=== PATIENT | female | born 1965 | race African-American/Black ===

== ENCOUNTER 2018-01-16 21:39 | Inpatient (IN) ==
[2018-01-16] MEDS ORDERED: ALBUTEROL/IPRATROPIUM 3 ML NEB RESP TX STA (22:30)
[2018-01-16] MEDS ORDERED: ASPIRIN 325 MG TABLET PO STA (22:30)
[2018-01-16] MEDS ORDERED: ONDANSETRON 4 MG/2 ML VIAL IV ONE (22:30)
[2018-01-16 22:46] LABS: Basophils % 0.2 % (0.0-0.8); Eosinophils % 0.2 % (0.00-10.9); Hematocrit 35.8 VOL% (35.7-47.0); Hemoglobin 11.4 GM/DL (12.0-16.0); Immature Granulocytes % 0.5 %; Immature Granulocytes Absolute 0.05 #; Lymphocytes # 1.1 10*3/uL (1.4-4.0); Lymphocytes % 11.2 % (21.3-54.2); Mean Corpuscular HGB Conc 31.8 GM/DL (32-36); Mean Corpuscular Hemoglobin 29 PG (27-34); Mean Corpuscular Volume 89.7 FL (87-102); Mean Platelet Volume 11.7 FL (9.6-12.0); Monocytes # 0.6 10*3/uL (0.11-0.8); Monocytes % 6.6 % (1.7-12.7); Neutrophils # 7.9 10*3/uL (1.4-7.4); Neutrophils % 81.3 % (38.7-73.9); Platelet Count 199 T/CUMM (130-400); Red Blood Count 3.99 MC/CUMM (3.8-5.5); Red Cell Distribution Width 13.9 % (9.3-17.3); White Blood Count 9.7 T/CUMM (4-12)
[2018-01-16 22:52] LABS: INR 0.9
[2018-01-16 23:00] LABS: ABG Base Excess -1.3 MMOL/L (-2.5-2.5); ABG Oxygen Saturation 87.6 % (95-100); ABG PCO2 36.7 MM HG (35-48); ABG PH 7.415 (7.35-7.45); ABG TCO2 24.1 MMOL/L (23-27)
[2018-01-16 23:01] LABS: Alanine Aminotransferase 26 U/L (13-56); Albumin 2.6 G/DL (3.4-5.0); Alkaline Phosphatase 169 U/L (45-117); Aspartate Amino Transferase 26 U/L (0-37); Blood Urea Nitrogen 52 MG/DL (7-18); Calcium 8.3 MG/DL (8.5-10.1); Glucose 364 MG/DL (74-106); Osmolality,Calculated 305.5 MOS/KG (273-304); Potassium 4.2 MMOL/L (3.5-5.1); Sodium 139 MMOL/L (136-145); Total Protein 6.8 G/DL (6.4-8.3); Troponin I Only < 0.015 NG/ML (0.00-0.045)
[2018-01-17] MEDS ORDERED: FUROSEMIDE 40 MG/4 ML VIAL IV ONE ×3 (00:47→09:53)
[2018-01-17] MEDS ORDERED: FUROSEMIDE 100 MG/10 ML VIAL ONE (01:45)
[2018-01-17] MEDS ORDERED: MORPHINE 4 MG/1 ML VIAL IV PRN (03:18)
[2018-01-17] MEDS ORDERED: GLUCAGON 1 MG VIAL IM PRN (03:18)
[2018-01-17] MEDS ORDERED: DEXTROSE 50% 25 GM/50 ML VIAL IV PRN (03:18)
[2018-01-17] MEDS ORDERED: PROMETHAZINE 25 MG/1 ML VIAL IM PRN (03:18)
[2018-01-17] MEDS ORDERED: ONDANSETRON 4 MG/2 ML VIAL IV PRN (03:18)
[2018-01-17] MEDS ORDERED: ALBUMIN 25% 50 GM in PREMIX 1 EACH IV ONE (04:00)
[2018-01-17 06:15] LABS: Risk Ratio 2.36; Thyroid Stimulating Hormone 2.81 uIU/ml (0.358-3.74); VLDL CHOLESTEROL 21.8 MG/DL
[2018-01-17] MEDS ORDERED: ALBUTEROL/IPRATROPIUM 3 ML NEB RESP TX PRN (07:58)
[2018-01-17] MEDS ORDERED: NON-FORMULARY MEDICATION (Liraglutide [Victoza 2-Pak] 0.6 MG) SUBCUT SCH (09:00)
[2018-01-17] MEDS ORDERED: FUROSEMIDE 40 MG/4 ML VIAL IV SCH ×2 (09:00→16:00)
[2018-01-17] MEDS ORDERED: ENOXAPARIN 30 MG/0.3 ML SYRINGE SUBCUT SCH (09:00)
[2018-01-17 09:17] LABS: Apearance,Urine Slightly Hazy (Clear); Bacteria,Urine Occasional /HPF (Few); Bilirubin,Urine Negative (Negative); Blood, Urine Large mg/dL (Negative); Glucose,Urine (UA) >=500 mg/dL (Negative); Ketones,Urine Negative (Negative); Mucus,Urine Occasional /LPF (Occasional); Nitrite,Urine Negative (Negative); Protein,Urine >=500 MG/DL; RBC,Urine 254 /HPF (0-4); Squamous Epithelial Cell,Urine Occasional /HPF (0-10); Urine Color Yellow (Yellow); Urine Specific Gravity 1.008 (1.001-1.035); Urine Urobilinogen < 2.0 EU/DL (0.2-1.0); WBC,Urine 41 /HPF (0-6)
[2018-01-17] MEDS: INSULIN REGULAR 100 UNIT/ML SUBCUT SCH ×3 (10:09→17:55)
[2018-01-17 11:34] LABS: Protein/Creatinine Ratio,Urine 8.2 RATIO
[2018-01-17] MEDS: ENOXAPARIN 80 MG/0.8 ML SYRINGE SUBCUT SCH (13:10)
[2018-01-17] MEDS: hydrALAZINE 25 MG TABLET PO SCH ×3 (15:12→21:17)
[2018-01-17] MEDS: CARVEDILOL 25 MG TABLET PO SCH ×2 (15:18→21:17)
[2018-01-17] MEDS: amLODIPine 5 MG TABLET PO SCH (15:19)
[2018-01-17] MEDS: ASPIRIN EC 81 MG TABLET PO SCH (15:21)
[2018-01-17] MEDS: LEVOTHYROXINE 50 MCG TABLET PO SCH (15:21)
[2018-01-17] MEDS: FERROUS SULFATE 325 MG TABLET PO SCH (15:21)
[2018-01-17] MEDS: PANTOPRAZOLE 40 MG TABLET PO SCH (15:21)
[2018-01-17] MEDS: DOCUSATE SODIUM 100 MG CAPSULE PO SCH ×2 (15:21→21:19)
[2018-01-17] MEDS: SODIUM BICARBONATE 650 MG TABLET PO SCH ×2 (15:22→21:16)
[2018-01-17] MEDS: TIMOLOL 0.25% OPH SOLN 5 ML BOTTLE LEFT EYE SCH (15:22)
[2018-01-17] MEDS ORDERED: metOLazone 5 MG TABLET PO ONE (15:37)
[2018-01-17] MEDS ORDERED: FUROSEMIDE 100 MG/10 ML VIAL IV SCH (16:00)
[2018-01-17] MEDS: FUROSEMIDE 40 MG/4 ML VIAL IV SCH ×2 (16:07→21:21)
[2018-01-17] MEDS: ALBUMIN 25% 25 GM in PREMIX 1 EACH IV SCH (17:10)
[2018-01-17] MEDS: ATORVASTATIN 40 MG TABLET PO SCH (21:17)
[2018-01-17 23:10] LABS: ABG Base Excess -0.6 MMOL/L (-2.5-2.5); ABG HCO3 23.9 MMOL/L (20-26); ABG Oxygen Saturation 93.8 % (95-100); ABG PCO2 39.5 MM HG (35-48); ABG PH 7.394 (7.35-7.45); ABG PO2 79.5 MM HG (80-95); ABG TCO2 22.8 MMOL/L (23-27); Allen Test Positive
[2018-01-18 00:12] LABS: Calcium 8.1 MG/DL (8.5-10.1); Osmolality,Calculated 298.1 MOS/KG (273-304); Potassium 3.3 MMOL/L (3.5-5.1)
[2018-01-18] MEDS: INSULIN REGULAR 100 UNIT/ML SUBCUT SCH ×5 (00:26→23:38)
[2018-01-18 00:32] LABS: Apearance,Urine CLOUDY (Clear); Bacteria,Urine Many /HPF (Few); Bilirubin,Urine Negative (Negative); Blood, Urine Moderate mg/dL (Negative); Glucose,Urine (UA) 50 mg/dL (Negative); Granular Casts,Urine 46 /LPF (0-1); Ketones,Urine Negative (Negative); Mucus,Urine Few /LPF (Occasional); Nitrite,Urine Negative (Negative); Protein,Urine 100 MG/DL; RBC,Urine 6702 /HPF (0-4); Urine Color Red (Yellow); Urine Specific Gravity 1.012 (1.001-1.035); Urine Urobilinogen < 2.0 EU/DL (0.2-1.0); WBC,Urine 342 /HPF (0-6)
[2018-01-18] MEDS: INSULIN GLARGINE 100 UNIT/ML SUBCUT SCH ×2 (00:57→20:47)
[2018-01-18] MEDS: FERROUS SULFATE 325 MG TABLET PO SCH ×4 (00:57→20:47)
[2018-01-18] MEDS: TIMOLOL 0.25% OPH SOLN 5 ML BOTTLE LEFT EYE SCH ×3 (00:58→22:13)
[2018-01-18 03:07] LABS: Basophils % 0.2 % (0.0-0.8); Hematocrit 22.1 VOL% (35.7-47.0); Hemoglobin 6.7 GM/DL (12.0-16.0); Immature Granulocytes % 0.4 %; Immature Granulocytes Absolute 0.05 #; Lymphocytes # 1.1 10*3/uL (1.4-4.0); Lymphocytes % 9.4 % (21.3-54.2); Mean Corpuscular HGB Conc 30.3 GM/DL (32-36); Mean Corpuscular Hemoglobin 27 PG (27-34); Mean Corpuscular Volume 90.2 FL (87-102); Mean Platelet Volume 10.9 FL (9.6-12.0); Monocytes % 8.6 % (1.7-12.7); Neutrophils # 9.7 10*3/uL (1.4-7.4); Neutrophils % 81.4 % (38.7-73.9); Platelet Count 183 T/CUMM (130-400); Red Blood Count 2.45 MC/CUMM (3.8-5.5); White Blood Count 11.9 T/CUMM (4-12)
[2018-01-18 03:33] LABS: Calcium 8.2 MG/DL (8.5-10.1); Osmolality,Calculated 298.1 MOS/KG (273-304); Potassium 3.2 MMOL/L (3.5-5.1)
[2018-01-18] MEDS: FUROSEMIDE 40 MG/4 ML VIAL IV SCH ×4 (04:53→23:31)
[2018-01-18] MEDS: ALBUMIN 25% 25 GM in PREMIX 1 EACH IV SCH ×2 (04:54→17:28)
[2018-01-18] MEDS: LEVOTHYROXINE 50 MCG TABLET PO SCH (06:10)
[2018-01-18] MEDS: PANTOPRAZOLE 40 MG TABLET PO SCH (09:44)
[2018-01-18] MEDS: SODIUM BICARBONATE 650 MG TABLET PO SCH ×2 (09:44→20:47)
[2018-01-18] MEDS: hydrALAZINE 25 MG TABLET PO SCH ×3 (09:44→20:48)
[2018-01-18] MEDS: DOCUSATE SODIUM 100 MG CAPSULE PO SCH ×2 (09:44→20:47)
[2018-01-18] MEDS: ASPIRIN EC 81 MG TABLET PO SCH (09:45)
[2018-01-18] MEDS: metOLazone 5 MG TABLET PO SCH (09:45)
[2018-01-18] MEDS: amLODIPine 5 MG TABLET PO SCH (09:45)
[2018-01-18] MEDS: CARVEDILOL 25 MG TABLET PO SCH ×2 (09:45→20:47)
[2018-01-18] MEDS ORDERED: POTASSIUM CHLORIDE 20 MEQ TABLET PO ONE (10:08)
[2018-01-18 10:37] LABS: Basophils % 0.2 % (0.0-0.8); Eosinophils % 0.2 % (0.00-10.9); Hematocrit 20.5 VOL% (35.7-47.0); Hemoglobin 6.7 GM/DL (12.0-16.0); Immature Granulocytes % 0.3 %; Immature Granulocytes Absolute 0.04 #; Lymphocytes # 0.9 10*3/uL (1.4-4.0); Lymphocytes % 7.6 % (21.3-54.2); Mean Corpuscular HGB Conc 32.7 GM/DL (32-36); Mean Corpuscular Hemoglobin 29 PG (27-34); Mean Corpuscular Volume 87.6 FL (87-102); Monocytes # 0.9 10*3/uL (0.11-0.8); Monocytes % 7.7 % (1.7-12.7); Neutrophils # 10.2 10*3/uL (1.4-7.4); Platelet Count 172 T/CUMM (130-400); Red Blood Count 2.34 MC/CUMM (3.8-5.5); Red Cell Distribution Width 14.2 % (9.3-17.3); White Blood Count 12.2 T/CUMM (4-12)
[2018-01-18 10:46] LABS: % Iron Saturation 7.4 % (18-50)
[2018-01-18 11:04] LABS: Basophils % 0.2 % (0.0-0.8); Eosinophils % 0.2 % (0.00-10.9); Hematocrit 19.7 VOL% (35.7-47.0); Hemoglobin 6.5 GM/DL (12.0-16.0); Immature Granulocytes % 0.5 %; Immature Granulocytes Absolute 0.06 #; Lymphocytes # 0.8 10*3/uL (1.4-4.0); Mean Corpuscular Hemoglobin 29 PG (27-34); Mean Corpuscular Volume 87.6 FL (87-102); Mean Platelet Volume 10.9 FL (9.6-12.0); Neutrophils # 10.2 10*3/uL (1.4-7.4); Neutrophils % 84.1 % (38.7-73.9); Platelet Count 177 T/CUMM (130-400); Red Blood Count 2.25 MC/CUMM (3.8-5.5); Red Cell Distribution Width 14.2 % (9.3-17.3); White Blood Count 12.1 T/CUMM (4-12)
[2018-01-18 12:20] LABS: Folate 8.7 NG/ML (5.4-24.0); Vitamin B12 391 PG/ML (211-911)
[2018-01-18] MEDS: ENOXAPARIN 80 MG/0.8 ML SYRINGE SUBCUT SCH (12:21)
[2018-01-18 13:13] LABS: Sedimentation Rate-Westergren 125 MM/HR (0-30)
[2018-01-18] MEDS ORDERED: SODIUM CHLORIDE 0.9% 1,000 ML IV PRN (16:13)
[2018-01-18] MEDS: ATORVASTATIN 40 MG TABLET PO SCH (20:47)
[2018-01-19] MEDS: ALBUMIN 25% 25 GM in PREMIX 1 EACH IV SCH ×2 (04:31→16:37)
[2018-01-19] MEDS: FUROSEMIDE 40 MG/4 ML VIAL IV SCH ×4 (04:31→21:51)
[2018-01-19 05:24] LABS: Basophils % 0.1 % (0.0-0.8); Eosinophils # 0.1 10*3/uL (0.0-0.87); Hematocrit 24.1 VOL% (35.7-47.0); Hemoglobin 7.7 GM/DL (12.0-16.0); Immature Granulocytes % 0.4 %; Immature Granulocytes Absolute 0.04 #; Lymphocytes # 0.9 10*3/uL (1.4-4.0); Mean Corpuscular Hemoglobin 29 PG (27-34); Mean Corpuscular Volume 89.3 FL (87-102); Mean Platelet Volume 11.6 FL (9.6-12.0); Monocytes % 10.1 % (1.7-12.7); Neutrophils # 7.6 10*3/uL (1.4-7.4); Neutrophils % 79.4 % (38.7-73.9); Platelet Count 145 T/CUMM (130-400); Red Cell Distribution Width 14.2 % (9.3-17.3); White Blood Count 9.6 T/CUMM (4-12)
[2018-01-19 05:43] LABS: Osmolality,Calculated 300.4 MOS/KG (273-304); Potassium 3.3 MMOL/L (3.5-5.1)
[2018-01-19] MEDS: INSULIN REGULAR 100 UNIT/ML SUBCUT SCH ×3 (05:49→17:57)
[2018-01-19] MEDS: LEVOTHYROXINE 50 MCG TABLET PO SCH (06:19)
[2018-01-19] MEDS: POLYETHYLENE GLYCOL POWDER 17 GM PACK PO SCH ×2 (06:19→09:29)
[2018-01-19 09:26] LABS: Hemoglobin A1 (Alkaline) 98.2 % (96.5-98.5); Hemoglobin A2 (Alkaline) 1.8 % (1.5-3.5)
[2018-01-19] MEDS: TIMOLOL 0.25% OPH SOLN 5 ML BOTTLE LEFT EYE SCH ×2 (09:27→20:58)
[2018-01-19] MEDS: DOCUSATE SODIUM 100 MG CAPSULE PO SCH ×2 (09:28→20:55)
[2018-01-19] MEDS: metOLazone 5 MG TABLET PO SCH (09:28)
[2018-01-19] MEDS: SODIUM BICARBONATE 650 MG TABLET PO SCH ×2 (09:28→20:55)
[2018-01-19] MEDS: PANTOPRAZOLE 40 MG TABLET PO SCH (09:28)
[2018-01-19] MEDS: hydrALAZINE 25 MG TABLET PO SCH ×4 (09:28→20:56)
[2018-01-19] MEDS: CARVEDILOL 25 MG TABLET PO SCH ×2 (09:28→20:56)
[2018-01-19] MEDS: FERROUS SULFATE 325 MG TABLET PO SCH ×3 (09:28→20:59)
[2018-01-19] MEDS: amLODIPine 5 MG TABLET PO SCH (09:28)
[2018-01-19] MEDS ORDERED: POTASSIUM CHLORIDE 20 MEQ/15 ML UDCUP PO ONE (11:00)
[2018-01-19] MEDS: cefTRIAXone 1,000 MG in SYRINGE 1 EACH IV SCH (11:54)
[2018-01-19 11:55] LABS: Rheumatoid Factor < 15 IU/ML (<15)
[2018-01-19 12:16] LABS: Allen Test Positive; Pt O2 Delivery Device Venturi Mask
[2018-01-19 12:17] LABS: ABG Base Excess -0.9 MMOL/L (-2.5-2.5); ABG HCO3 23.5 MMOL/L (20-26); ABG Oxygen Saturation 89.2 % (95-100); ABG PCO2 35.5 MM HG (35-48); ABG PH 7.423 (7.35-7.45); ABG PO2 57.8 MM HG (80-95); ABG TCO2 21.6 MMOL/L (23-27)
[2018-01-19] MEDS: CLINDAMYCIN INJ 300 MG in PREMIX 1 EACH IV SCH ×2 (12:22→21:46)
[2018-01-19 14:21] LABS: Collection Time,Urine 24 HOURS; Total Protein 24 Hr Ur Result 3168 MG/24HR (0-149.1); Total Volume,Urine 600 ML (400-2000)
[2018-01-19] MEDS ORDERED: SODIUM CHLORIDE 0.9% 1,000 ML IV PRN (17:27)
[2018-01-19] MEDS: INSULIN GLARGINE 100 UNIT/ML SUBCUT SCH (20:55)
[2018-01-19] MEDS: ATORVASTATIN 40 MG TABLET PO SCH (20:56)
[2018-01-19] MEDS ORDERED: PROPOFOL 1,000 MG/100 ML BOTTLE IV ONE (22:20)
[2018-01-19] MEDS ORDERED: VECURONIUM 10 MG VIAL IV ONE ×2 (22:21→22:25)
[2018-01-19] MEDS ORDERED: ETOMIDATE 20 MG/10 ML VIAL IV ONE ×2 (22:21→22:25)
[2018-01-19 23:54] LABS: Hematocrit 25.8 VOL% (35.7-47.0); Hemoglobin 8.4 GM/DL (12.0-16.0)
[2018-01-20 00:23] LABS: ABG Base Excess -2.7 MMOL/L (-2.5-2.5); ABG HCO3 24.2 MMOL/L (20-26); ABG PCO2 52.9 MM HG (35-48); ABG PH 7.278 (7.35-7.45); ABG PO2 117.2 MM HG (80-95); ABG TCO2 25.8 MMOL/L (23-27); Pt O2 Delivery Device Ventilator
[2018-01-20] MEDS: PROPOFOL 1,000 MG/100 ML BOTTLE IV SCH ×7 (00:27→21:26)
[2018-01-20] MEDS: INSULIN REGULAR 100 UNIT/ML SUBCUT SCH ×4 (00:28→18:25)
[2018-01-20 01:40] LABS: ABG Base Excess -3.6 MMOL/L (-2.5-2.5); ABG HCO3 21.3 MMOL/L (20-26); ABG Oxygen Saturation 91.2 % (95-100); ABG PCO2 51.7 MM HG (35-48); ABG PH 7.267 (7.35-7.45); ABG PO2 71.7 MM HG (80-95); ABG TCO2 22.1 MMOL/L (23-27); Pt O2 Delivery Device Ventilator
[2018-01-20] MEDS ORDERED: FUROSEMIDE 20 MG/2 ML VIAL ONE (04:08)
[2018-01-20] MEDS: FUROSEMIDE 40 MG/4 ML VIAL IV SCH ×2 (04:13→10:51)
[2018-01-20] MEDS: ALBUMIN 25% 25 GM in PREMIX 1 EACH IV SCH ×2 (04:13→17:25)
[2018-01-20] MEDS: LEVOTHYROXINE 50 MCG TABLET PO SCH (05:50)
[2018-01-20] MEDS: CLINDAMYCIN INJ 300 MG in PREMIX 1 EACH IV SCH ×3 (05:52→21:40)
[2018-01-20 06:08] LABS: Basophils % 0.2 % (0.0-0.8); Eosinophils # 0.1 10*3/uL (0.0-0.87); Eosinophils % 0.8 % (0.00-10.9); Hematocrit 25.7 VOL% (35.7-47.0); Hemoglobin 8.4 GM/DL (12.0-16.0); Immature Granulocytes % 0.6 %; Immature Granulocytes Absolute 0.06 #; Lymphocytes # 0.9 10*3/uL (1.4-4.0); Lymphocytes % 8.4 % (21.3-54.2); Mean Corpuscular HGB Conc 32.7 GM/DL (32-36); Mean Corpuscular Hemoglobin 29 PG (27-34); Mean Corpuscular Volume 88.9 FL (87-102); Mean Platelet Volume 10.6 FL (9.6-12.0); Monocytes # 0.8 10*3/uL (0.11-0.8); Monocytes % 7.6 % (1.7-12.7); Neutrophils # 8.3 10*3/uL (1.4-7.4); Neutrophils % 82.4 % (38.7-73.9); Platelet Count 173 T/CUMM (130-400); Red Blood Count 2.89 MC/CUMM (3.8-5.5); Red Cell Distribution Width 14.5 % (9.3-17.3); White Blood Count 10.1 T/CUMM (4-12)
[2018-01-20 06:25] LABS: Calcium 7.8 MG/DL (8.5-10.1); Osmolality,Calculated 307.7 MOS/KG (273-304); Potassium 3.7 MMOL/L (3.5-5.1)
[2018-01-20 08:09] LABS: ABG Base Excess -3.2 MMOL/L (-2.5-2.5); ABG HCO3 22.2 MMOL/L (20-26); ABG Oxygen Saturation 96.4 % (95-100); ABG PH 7.351 (7.35-7.45); ABG PO2 100.4 MM HG (80-95); ABG TCO2 23.4 MMOL/L (23-27); Pt O2 Delivery Device Ventilator
[2018-01-20 08:52] LABS: PT Patient Result 10.8 SECS; Partial Thromboplastin Time 34.1 SECS (0-40)
[2018-01-20] MEDS: amLODIPine 5 MG TABLET PO SCH (10:11)
[2018-01-20] MEDS: hydrALAZINE 25 MG TABLET PO SCH ×3 (10:11→21:34)
[2018-01-20] MEDS: CARVEDILOL 25 MG TABLET PO SCH (10:11)
[2018-01-20] MEDS: POLYETHYLENE GLYCOL POWDER 17 GM PACK PO SCH (10:51)
[2018-01-20] MEDS: SODIUM BICARBONATE 650 MG TABLET PO SCH ×2 (10:51→21:34)
[2018-01-20] MEDS: EPOETIN ALFA 10,000 UNIT/1 ML VIAL SUBCUT SCH (10:51)
[2018-01-20] MEDS: metOLazone 5 MG TABLET PO SCH (10:52)
[2018-01-20] MEDS: FERROUS SULFATE 325 MG TABLET PO SCH ×2 (10:52→21:35)
[2018-01-20] MEDS: TIMOLOL 0.25% OPH SOLN 5 ML BOTTLE LEFT EYE SCH ×2 (10:52→21:35)
[2018-01-20] MEDS: PANTOPRAZOLE 40 MG VIAL IV SCH (11:08)
[2018-01-20] MEDS: DOCUSATE SODIUM 100 MG/10 ML UDCUP PO SCH ×2 (11:08→21:34)
[2018-01-20] MEDS: cefTRIAXone 1,000 MG in SYRINGE 1 EACH IV SCH (11:50)
[2018-01-20] MEDS: DOCUSATE SODIUM 100 MG CAPSULE PO SCH (11:59)
[2018-01-20] MEDS ORDERED: SODIUM CHLORIDE 0.9% 500 ML IV ONE (12:01)
[2018-01-20] MEDS: PANTOPRAZOLE 40 MG TABLET PO SCH (13:22)
[2018-01-20] MEDS: SODIUM CHLORIDE 0.9% 1,000 ML IV SCH ×2 (14:57→22:22)
[2018-01-20] MEDS: INSULIN GLARGINE 100 UNIT/ML SUBCUT SCH (21:34)
[2018-01-20] MEDS: ATORVASTATIN 40 MG TABLET PO SCH (21:35)
[2018-01-21] MEDS: PROPOFOL 1,000 MG/100 ML BOTTLE IV SCH ×9 (00:11→23:51)
[2018-01-21] MEDS: INSULIN REGULAR 100 UNIT/ML SUBCUT SCH ×4 (00:20→18:21)
[2018-01-21 03:37] LABS: Allen Test Positive; Pt O2 Delivery Device Ventilator
[2018-01-21 03:38] LABS: ABG Base Excess -4.5 MMOL/L (-2.5-2.5); ABG HCO3 20.7 MMOL/L (20-26); ABG Oxygen Saturation 95.1 % (95-100); ABG PCO2 39.6 MM HG (35-48); ABG PH 7.334 (7.35-7.45); ABG PO2 84.6 MM HG (80-95); ABG TCO2 19.5 MMOL/L (23-27)
[2018-01-21] MEDS: ALBUMIN 25% 25 GM in PREMIX 1 EACH IV SCH ×2 (04:41→17:48)
[2018-01-21 05:14] LABS: Basophils % 0.1 % (0.0-0.8); Eosinophils # 0.2 10*3/uL (0.0-0.87); Eosinophils % 2.5 % (0.00-10.9); Hematocrit 26.6 VOL% (35.7-47.0); Hemoglobin 8.9 GM/DL (12.0-16.0); Immature Granulocytes % 0.6 %; Immature Granulocytes Absolute 0.06 #; Lymphocytes # 0.6 10*3/uL (1.4-4.0); Lymphocytes % 6.9 % (21.3-54.2); Mean Corpuscular HGB Conc 33.5 GM/DL (32-36); Mean Corpuscular Hemoglobin 30 PG (27-34); Mean Corpuscular Volume 88.7 FL (87-102); Mean Platelet Volume 11.2 FL (9.6-12.0); Monocytes # 0.8 10*3/uL (0.11-0.8); Monocytes % 8.5 % (1.7-12.7); Neutrophils # 7.6 10*3/uL (1.4-7.4); Neutrophils % 81.4 % (38.7-73.9); Platelet Count 202 T/CUMM (130-400); Red Cell Distribution Width 14.9 % (9.3-17.3); White Blood Count 9.3 T/CUMM (4-12)
[2018-01-21 05:49] LABS: Calcium 7.5 MG/DL (8.5-10.1); Osmolality,Calculated 305.7 MOS/KG (273-304); Potassium 3.5 MMOL/L (3.5-5.1)
[2018-01-21 05:54] LABS: Prealbumin 10.8 MG/DL (20-40)
[2018-01-21] MEDS: LEVOTHYROXINE 50 MCG TABLET PO SCH (05:54)
[2018-01-21] MEDS: CLINDAMYCIN INJ 300 MG in PREMIX 1 EACH IV SCH ×3 (05:55→21:46)
[2018-01-21] MEDS: SODIUM CHLORIDE 0.9% 1,000 ML IV SCH ×2 (07:12→09:34)
[2018-01-21] MEDS: PANTOPRAZOLE 40 MG VIAL IV SCH (09:19)
[2018-01-21] MEDS: DOCUSATE SODIUM 100 MG/10 ML UDCUP PO SCH ×2 (09:21→21:37)
[2018-01-21] MEDS: FERROUS SULFATE 325 MG TABLET PO SCH ×2 (09:21→21:38)
[2018-01-21] MEDS: TIMOLOL 0.25% OPH SOLN 5 ML BOTTLE LEFT EYE SCH ×2 (09:21→21:39)
[2018-01-21] MEDS: SODIUM BICARBONATE 650 MG TABLET PO SCH ×2 (09:21→21:38)
[2018-01-21] MEDS: POLYETHYLENE GLYCOL POWDER 17 GM PACK PO SCH (09:21)
[2018-01-21] MEDS: hydrALAZINE 25 MG TABLET PO SCH ×3 (09:21→21:38)
[2018-01-21 11:43] LABS: HIV Antigen/Antibody Result Nonreactive (Nonreactive)
[2018-01-21 12:14] LABS: Barbiturates Screen,Urine Negative (Negative); Benzodiazepines Screen,Urine Negative (Negative); Cannabinoid Screen,Urine Negative (Negative); Opiate Screen,Urine Negative (Negative); Phencyclidine Screen,Urine Negative (Negative)
[2018-01-21] MEDS: methylPREDNISolone SOD SUC 125 MG/2 ML VIAL IV SCH ×2 (12:36→18:22)
[2018-01-21] MEDS: cefTRIAXone 1,000 MG in SYRINGE 1 EACH IV SCH (12:39)
[2018-01-21] MEDS: SODIUM CHLORIDE 0.45% 1,000 ML IV SCH (19:44)
[2018-01-21] MEDS: INSULIN GLARGINE 100 UNIT/ML SUBCUT SCH (21:37)
[2018-01-21] MEDS: ATORVASTATIN 40 MG TABLET PO SCH (21:38)
[2018-01-22] MEDS: INSULIN REGULAR 100 UNIT/ML SUBCUT SCH ×4 (00:33→18:01)
[2018-01-22] MEDS: methylPREDNISolone SOD SUC 125 MG/2 ML VIAL IV SCH ×3 (02:18→18:01)
[2018-01-22] MEDS: PROPOFOL 1,000 MG/100 ML BOTTLE IV SCH ×6 (02:37→20:21)
[2018-01-22 03:26] LABS: ABG Base Excess -7.1 MMOL/L (-2.5-2.5); ABG Oxygen Saturation 92.2 % (95-100); ABG PCO2 34.7 MM HG (35-48); ABG PH 7.332 (7.35-7.45); ABG PO2 72.3 MM HG (80-95)
[2018-01-22] MEDS: SODIUM CHLORIDE 0.45% 1,000 ML IV SCH ×2 (03:26→11:48)
[2018-01-22 03:53] LABS: ABG Base Excess -7.4 MMOL/L (-2.5-2.5); ABG HCO3 18.3 MMOL/L (20-26); ABG Oxygen Saturation 92.9 % (95-100); ABG PCO2 35.5 MM HG (35-48); ABG PH 7.314 (7.35-7.45); ABG PO2 72.8 MM HG (80-95); ABG TCO2 16.8 MMOL/L (23-27)
[2018-01-22] MEDS: ALBUMIN 25% 25 GM in PREMIX 1 EACH IV SCH ×2 (04:41→17:13)
[2018-01-22] MEDS: LEVOTHYROXINE 50 MCG TABLET PO SCH (05:48)
[2018-01-22] MEDS: CLINDAMYCIN INJ 300 MG in PREMIX 1 EACH IV SCH ×2 (05:48→15:51)
[2018-01-22 05:51] LABS: Hematocrit 25.3 VOL% (35.7-47.0); Hemoglobin 8.9 GM/DL (12.0-16.0); Immature Granulocytes % 0.8 %; Immature Granulocytes Absolute 0.08 #; Lymphocytes # 0.4 10*3/uL (1.4-4.0); Lymphocytes % 4.3 % (21.3-54.2); Mean Corpuscular HGB Conc 35.2 GM/DL (32-36); Mean Corpuscular Hemoglobin 30 PG (27-34); Mean Corpuscular Volume 86.3 FL (87-102); Mean Platelet Volume 11.1 FL (9.6-12.0); Monocytes # 0.5 10*3/uL (0.11-0.8); Monocytes % 5.3 % (1.7-12.7); NRBC # 0.02 10*3/uL; Neutrophils # 8.5 10*3/uL (1.4-7.4); Neutrophils % 89.6 % (38.7-73.9); Platelet Count 230 T/CUMM (130-400); Red Blood Count 2.93 MC/CUMM (3.8-5.5); Red Cell Distribution Width 15.3 % (9.3-17.3); White Blood Count 9.5 T/CUMM (4-12)
[2018-01-22 06:35] LABS: Calcium 6.8 MG/DL (8.5-10.1); Osmolality,Calculated 302.4 MOS/KG (273-304)
[2018-01-22 06:51] LABS: Band Neutrophils 7 % (0-10); Lymphocytes 4 % (20-55); Segmented Neutrophils 86 % (50-85); Total Cells Counted 100
[2018-01-22 06:52] LABS: Platelet Estimate Normal; Tear Drop Cells 1+
[2018-01-22] MEDS: PANTOPRAZOLE 40 MG VIAL IV SCH (09:45)
[2018-01-22] MEDS: DOCUSATE SODIUM 100 MG/10 ML UDCUP PO SCH ×2 (09:45→20:20)
[2018-01-22] MEDS: SODIUM BICARBONATE 650 MG TABLET PO SCH ×2 (09:46→20:19)
[2018-01-22] MEDS: hydrALAZINE 25 MG TABLET PO SCH ×3 (09:46→20:20)
[2018-01-22] MEDS: FERROUS SULFATE 325 MG TABLET PO SCH ×2 (09:46→20:19)
[2018-01-22] MEDS: TIMOLOL 0.25% OPH SOLN 5 ML BOTTLE LEFT EYE SCH ×2 (09:47→20:21)
[2018-01-22] MEDS: POLYETHYLENE GLYCOL POWDER 17 GM PACK PO SCH (09:47)
[2018-01-22] MEDS: EPOETIN ALFA 10,000 UNIT/1 ML VIAL SUBCUT SCH (09:57)
[2018-01-22] MEDS ORDERED: MIDAZOLAM 10 MG/2 ML VIAL ONE (10:46)
[2018-01-22] MEDS ORDERED: MIDAZOLAM 10 MG/2 ML VIAL IV ONE (10:50)
[2018-01-22] MEDS ORDERED: MIDAZOLAM 100 MG in SODIUM CHLORIDE 0.9% 80 ML IV PRN (11:20)
[2018-01-22] MEDS: cefTRIAXone 1,000 MG in SYRINGE 1 EACH IV SCH (11:44)
[2018-01-22] MEDS: fentaNYL INJ 1,250 MCG in SODIUM CHLORIDE 0.9% 225 ML IV PRN ×2 (12:01→17:43)
[2018-01-22] MEDS ORDERED: SODIUM BICARB INJ 100 MEQ in DEXTROSE 5% 1,000 ML IV SCH (17:00)
[2018-01-22] MEDS: INSULIN GLARGINE 100 UNIT/ML SUBCUT SCH (20:19)
[2018-01-22] MEDS: ATORVASTATIN 40 MG TABLET PO SCH (20:19)
[2018-01-22 20:38] LABS: ABG Base Excess -11.3 MMOL/L (-2.5-2.5); ABG HCO3 15.4 MMOL/L (20-26); ABG Oxygen Saturation 93.4 % (95-100); ABG PCO2 59.6 MM HG (35-48); ABG PO2 89.4 MM HG (80-95); Allen Test Positive; Pt O2 Delivery Device Ventilator
[2018-01-22] MEDS ORDERED: PHENYLEPHRINE DRIP 40 MG/250 ML PREMIX IV ONE (21:05)
[2018-01-22] MEDS ORDERED: EPINEPHrine 1 MG/10 ML SYRINGE ONE (21:25)
[2018-01-22] MEDS ORDERED: PHENYLEPHRINE INJ 160 MG in SODIUM CHLORIDE 0.9% 234 ML IV PRN ×2 (21:26→22:49)
[2018-01-22] MEDS ORDERED: VECURONIUM 100 MG in SODIUM CHLORIDE 0.9% 100 ML IV SCH (21:30)
[2018-01-22] MEDS ORDERED: NOREPINEPHRINE 16 MG in SODIUM CHLORIDE 0.9% 234 ML IV PRN (21:37)
[2018-01-22 21:58] LABS: ABG Base Excess -14.5 MMOL/L (-2.5-2.5); ABG HCO3 13.1 MMOL/L (20-26); ABG Oxygen Saturation 92.6 % (95-100); ABG PCO2 32.8 MM HG (35-48); ABG PO2 76.6 MM HG (80-95); ABG TCO2 12.2 MMOL/L (23-27)
[2018-01-22 22:00] LABS: ABG PH 7.195 (7.35-7.45)
[2018-01-22] MEDS ORDERED: EPINEPHrine 1 MG/ML VIAL ONE (22:00)
[2018-01-22 22:58] LABS: Eosinophils % 0.1 % (0.00-10.9); Hematocrit 22.3 VOL% (35.7-47.0); Hemoglobin 7.1 GM/DL (12.0-16.0); Lymphocytes # 1.2 10*3/uL (1.4-4.0); Mean Corpuscular HGB Conc 31.8 GM/DL (32-36); Mean Corpuscular Hemoglobin 30 PG (27-34); Mean Corpuscular Volume 92.9 FL (87-102); Mean Platelet Volume 10.9 FL (9.6-12.0); Monocytes # 0.7 10*3/uL (0.11-0.8); Monocytes % 6.6 % (1.7-12.7); NRBC # 0.07 10*3/uL; Neutrophils # 7.8 10*3/uL (1.4-7.4); Neutrophils % 78.3 % (38.7-73.9); Platelet Count 270 T/CUMM (130-400); Red Cell Distribution Width 15.8 % (9.3-17.3); White Blood Count 9.9 T/CUMM (4-12)
[2018-01-22 23:17] LABS: Blood Urea Nitrogen 93 MG/DL (7-18); Calcium 5.9 MG/DL (8.5-10.1); Glucose 328 MG/DL (74-106); Osmolality,Calculated 311.1 MOS/KG (273-304); Potassium 5.3 MMOL/L (3.5-5.1); Sodium 135 MMOL/L (136-145)
[2018-01-22 23:28] LABS: Albumin 2.6 G/DL (3.4-5.0); Bilirubin,Total 2.4 MG/DL (0.2-1.0); Calcium 5.9 MG/DL (8.5-10.1); Osmolality,Calculated 309.2 MOS/KG (273-304); Potassium 5.3 MMOL/L (3.5-5.1); Total Protein 6.4 G/DL (6.4-8.3)
[2018-01-23 00:04] LABS: Lactic Acid 11.2 MMOL/L (0.4-2.0)
[2018-01-23] MEDS: CLINDAMYCIN INJ 300 MG in PREMIX 1 EACH IV SCH (02:22)
[2018-01-23] MEDS: PROPOFOL 1,000 MG/100 ML BOTTLE IV SCH (02:23)
[2018-01-23] MEDS: INSULIN REGULAR 100 UNIT/ML SUBCUT SCH (02:24)
[2018-01-23] MEDS: methylPREDNISolone SOD SUC 125 MG/2 ML VIAL IV SCH (02:30)
[2018-01-23 02:49] VITALS: BP 106/81
== END 2018-01-23 00:11 | disposition expired | DRG 981 ==
LOC: N.ED 21:39 → SUATTDRO 01-17 00:48 → N.EDINP 01-17 00:48 → N.TELES 01-17 02:25 → N.CC 01-17 22:56
PROVIDERS: ADMIT Internal Medicine Infectious Disease; ATTEND Family Medicine